=== PATIENT | male | born 2000 | race African-American/Black ===

== ENCOUNTER 2018-09-26 20:02 | Emergency (ER) | payer OTHER ==
[~2018-09-26] VITALS: Ht 180.3 cm; Wt 81.7 kg
[2018-09-26] MEDS ORDERED: ZYRTEC10 M5 PO (20:10)
[2018-09-26] MEDS ORDERED: NASONEX17 GM NASAL (20:11)
[2018-09-26] MEDS ORDERED: ZANTAC 150MG T150 MG PO (20:11)
[2018-09-26] MEDS ORDERED: VENTOLIN HFA INH8 GM INH (20:12)
[2018-09-26] MEDS ORDERED: SINGULAIR 10 MG10 M1 PO (21:06)
[2018-09-26] MEDS ORDERED: OLOPATADINE HC2.5 ML OPHTHALMIC (21:06)
[2018-09-26] MEDS ORDERED: FLONASE 0.05%50 MCG NASAL (21:06)
[2018-09-26 21:44] VITALS: BP 138/81
== END 2018-09-26 21:45 | disposition home or self-care (01) ==
LOC: ER 20:02
DX: J45.909 Unspecified asthma, uncomplicated (principal)

== ENCOUNTER 2021-06-22 23:30 | Emergency (ER) | payer OTHER ==
[~2021-06-22] VITALS: Ht 177.8 cm; Wt 72.6 kg
[~2021-06-22 23:30] MED LIST: FLONASE 0.05%50 MCG NASAL; NASONEX17 GM NASAL; OLOPATADINE HC2.5 ML OPHTHALMIC; SINGULAIR 10 MG10 M1 PO; VENTOLIN HFA INH8 GM INH; ZANTAC 150MG T150 MG PO; ZYRTEC10 M5 PO
[2021-06-23 03:29] LABS: ABSOLUTE NEUTROPHILS 2.9 thou/uL (1.4-8.2); BASOPHILS 0.2 % (0.0-2.0); EOSINOPHILS 0.1 % (0.0-3.0); HEMATOCRIT 46.9 % (42.0-52.0); HEMOGLOBIN 15.8 gm/dL (14.0-18.0); MCH 31.2 pg (26.0-34.0); MCHC 33.7 g/dL (28.0-37.0); MCV 92.6 fL (80.0-100.0); PLATELET COUNT 199 thou/uL (150-400); POLYS 56.7 % (36.0-66.0); RBC 5.07 mil/uL (4.50-6.00); RDW 13.6 % (10.5-14.5); WBC 5.1 thou/uL (4.0-11.0)
[2021-06-23 03:57] LABS: CALCIUM 9.4 mg/dL (8.5-10.1); CREATININE 1.2 mg/dL (0.7-1.3); POTASSIUM 3.9 mmol/L (3.5-5.1)
[2021-06-23 04:05] LABS: ALBUMIN 4.1 g/dL (3.4-5.0); TOTAL BILIRUBIN 0.2 mg/dL (0.2-1.0); TOTAL PROTEIN 8.2 g/dL (6.4-8.2)
[2021-06-23] MEDS ORDERED: CARAFATE1 GM PO (04:51)
[2021-06-23] MEDS ORDERED: PRILOSEC OTC20 MG PO (04:52)
[2021-06-23 05:31] VITALS: BP 124/90
== END 2021-06-23 05:33 | disposition home or self-care (01) ==
LOC: ER 23:30
PROVIDERS: Emergency Medicine
DX: K27.9 Peptic ulcer, site unspecified, unspecified as acute or chronic, without hemorrhage or perforation (principal); J45.909 Unspecified asthma, uncomplicated; Z98.890 Other specified postprocedural states; Z79.899 Other long term (current) drug therapy; Z79.51 Long term (current) use of inhaled steroids